=== PATIENT | male | born 1990 | race Caucasian/White ===

== ENCOUNTER 2019-08-15 13:39 | Emergency (ER) | payer SELFPAY ==
[~2019-08-15] VITALS: Ht 177.8 cm; Wt 97.5 kg
[2019-08-15 13:47] VITALS: Ht 177.8 cm; Wt 97.5 kg
[2019-08-15 15:34] VITALS: BP 122/65
== END 2019-08-15 15:34 | disposition home or self-care (01) ==
LOC: ED 13:39
DX: F41.0 Panic disorder [episodic paroxysmal anxiety] (principal); Z88.5 Allergy status to narcotic agent